=== PATIENT | male | born 1975 | race Hispanic/Latino ===

== ENCOUNTER → 2020-01-11 | Outpatient (CLI) | payer BC | END | disposition home or self-care (01) | LOC: RAH 07:26 | PROVIDERS: ATTEND Physical Medicine & Rehabilitation | DX: S46.112A Strain of muscle, fascia and tendon of long head of biceps, left arm, initial encounter (principal); X58.XXXA Exposure to other specified factors, initial encounter; Y93.89 Activity, other specified; Y92.89 Other specified places as the place of occurrence of the external cause; Y99.8 Other external cause status | CPT/HCPCS: 73221 ==

== ENCOUNTER → 2024-10-25 | Outpatient (CLI) | payer BC ==
--- NOTE | 2024-10-25 09:57 | HMCIMG ---
LUMBAR W FLEXION/EXTENSION REASON: LBP. COMPARISON: None TECHNIQUE: 4 images of lumbar spine were obtained including flexion and extension views. FINDINGS: Disc space narrowing are seen at L4-5 and L5-S1 levels. No loss of vertebral height is seen. IMPRESSION: Findings as described above.
== END | disposition home or self-care (01) ==
LOC: RAH 08:36
PROVIDERS: ATTEND Physical Medicine & Rehabilitation
DX: M48.07 Spinal stenosis, lumbosacral region (principal); M54.51 Vertebrogenic low back pain
CPT/HCPCS: 72114

== ENCOUNTER → 2024-11-08 | Outpatient (CLI) | payer BC ==
[~2024-11-08] MED LIST: GADOTERATE MEGLUMINE 10 MMOL/20 ML VIAL IV ONE
--- NOTE | 2024-11-09 06:06 | HMCIMG ---
EXAM: MR Right Elbow with and without IV Contrast CLINICAL HISTORY: Biceps strain. TECHNIQUE: Multiplanar multi-sequence MRI of the right elbow. Intravenous contrast was administered. COMPARISON: None provided. FINDINGS: Normal bone marrow signals. No acute fracture. Unremarkable joints. The radial head is intact. The capitellum shows no gross abnormality. No loose bodies are present within the joint. No joint effusion. The ulnar collateral and radial collateral ligaments are intact. Mild thickening with PDFS hyperintensity and mild surrounding soft tissue edema of the distal biceps tendon at its insertion at the radial tuberosity. The brachialis tendon insertion on the coronoid process and proximal volar surface of the ulna is normal. The proximal/common triceps insertion on the olecranon is intact. The common flexor and extensor tendon origins are normal in appearance. The pronator and supinator muscles are intact. The flexor digitorum profundus and superficialis shows no gross abnormality. The median nerve is visualized without evidence of entrapment or abnormality. The ulnar nerve shows no gross abnormality as well. No bony or soft tissue masses are identified. IMPRESSION: 1. Distal biceps tendinosis with mild surrounding soft tissue edema at the radial tuberosity insertion. 2. No acute osseous abnormality. 3. Intact ligaments. /[place]
== END | disposition home or self-care (01) ==
LOC: RAH 10:37
PROVIDERS: ATTEND Physical Medicine & Rehabilitation
DX: S46.211A Strain of muscle, fascia and tendon of other parts of biceps, right arm, initial encounter (principal); X58.XXXA Exposure to other specified factors, initial encounter; Y93.89 Activity, other specified; Y92.89 Other specified places as the place of occurrence of the external cause; Y99.8 Other external cause status
CPT/HCPCS: 73223; A9575

== ENCOUNTER → 2024-11-14 | Outpatient (CLI) | payer BC ==
--- NOTE | 2024-11-14 20:55 | HMCIMG ---
EXAM: MR Lumbar Spine Without Intravenous Contrast. CLINICAL HISTORY: Radiculopathy. Lumbar region. TECHNIQUE: Magnetic resonance images of the lumbar spine in multiple planes. CONTRAST: None. COMPARISON: Radiograph dated 10/25/24. FINDINGS: For this examination, spinal levels were labeled assuming five non-rib bearing, lumbar-type vertebrae with the inferior labeled L5. No acute fracture. Normal lordotic curvature. Mild multilevel spondylosis is evident by small marginal osteophytes. Disc desiccation and mild facet joint arthropathy noted at the L4-L5 and L5-S1 levels. Normal vertebral body and disc heights. Normal marrow signal of the vertebrae. Conus medullaris terminates at the T12-L1 level. No abnormal epidural masses. The surrounding soft tissues are unremarkable. Individual spinal levels are described as follows: T12-L1: No disc bulge or herniation. No neural foraminal, lateral recess or spinal canal stenosis. L1-L2: No disc bulge or herniation. No neural foraminal, lateral recess or spinal canal stenosis. L2-L3: No disc bulge or herniation. No neural foraminal, lateral recess or spinal canal stenosis. L3-L4: No disc bulge or herniation. No neural foraminal, lateral recess or spinal canal stenosis. L4-L5: 5 mm disc osteophyte complex bulge and facet joint arthropathy causing mild indentation on the anterior thecal sac, mild right lateral recess narrowing with indentation on the traversing right L5 nerve root, and mild bilateral foraminal narrowing with abutment of the exiting bilateral L4 nerve roots. L5-S1: 4 mm disc osteophyte complex bulge and facet joint arthropathy causing mild indentation on the anterior thecal sac and mild right foraminal narrowing with indentation on the exiting right L5 nerve root. No lateral recess stenosis. IMPRESSION: Redemonstrated mild multilevel spondylosis. Disc desiccation and mild facet joint arthropathy at the L4-L5 and L5-S1 levels. Mild indentation on the anterior thecal sac, mild right lateral recess narrowing with indentation on the traversing right L5 nerve root, and mild bilateral foraminal narrowing with abutment of the exiting bilateral L4 nerve roots at the L4-L5 level. Mild indentation on the anterior thecal sac and mild right foraminal narrowing with indentation on the exiting right L5 nerve root at the L5-S1 level. /[place]
== END | disposition home or self-care (01) ==
LOC: RAH 14:42
PROVIDERS: ATTEND Physical Medicine & Rehabilitation
DX: M47.26 Other spondylosis with radiculopathy, lumbar region (principal); M25.78 Osteophyte, vertebrae; M47.817 Spondylosis without myelopathy or radiculopathy, lumbosacral region; M51.379 Other intervertebral disc degeneration, lumbosacral region without mention of lumbar back pain or lower extremity pain; M51.16 Intervertebral disc disorders with radiculopathy, lumbar region
CPT/HCPCS: 72148